=== PATIENT | male | born 1970 | race Caucasian/White ===

== ENCOUNTER 2019-03-26 00:15 | Observation (INO) | payer OTHER ==
[~2019-03-26] VITALS: Ht 177.8 cm; Wt 68.0 kg
[2019-03-26 00:18] VITALS: BP 88/52
[2019-03-26 00:52] LABS: ABSOLUTE BASOPHILS 0.1 thou/uL (0.0-0.2); ABSOLUTE EOSINOPHILS 0.2 thou/uL (0.0-0.7); ABSOLUTE LYMPHOCYTES 3.1 thou/uL (0.8-5.3); ABSOLUTE MONOCYTES 0.5 thou/uL (0.0-1.2); ABSOLUTE NEUTROPHILS 5.5 thou/uL (1.6-8.1); BASOPHILS 0.8 %; EOSINOPHILS 1.7 %; HEMATOCRIT 37.7 % (42.0-52.0); HEMOGLOBIN 12.7 gm/dL (14.0-18.0); LYMPHOCYTES 33.3 %; MCH 29.2 pg (26.0-34.0); MCHC 33.6 g/dL (28.0-37.0); MCV 87.2 fL (80.0-100.0); MONOCYTES 5.4 %; MPV 7.3 fl. (7.2-11.1); NUCLEATED RBCS 0 /100WBC; PLATELET COUNT* 343 thou/uL (150-400); POLYS 58.8 %; RBC 4.33 mil/uL (4.50-6.00); RDW-CV 14.1 % (10.5-14.5); WBC 9.4 thou/uL (4.0-11.0)
[2019-03-26 00:58] LABS: CREATININE 1.4 mg/dL (0.6-1.3); POTASSIUM 3.6 mmol/L (3.5-5.1)
[2019-03-26 00:59] LABS: APTT 23.8 Seconds (25.0-31.3); PROTIME 10.4 Seconds (9.20-11.50)
[2019-03-26 01:03] LABS: ALBUMIN 3.8 g/dL (3.4-5.0); TOTAL BILIRUBIN 0.4 mg/dL (<0.1-1.0); TOTAL PROTEIN 6.8 g/dL (6.4-8.2)
--- NOTE | 2019-03-26 04:30 | NUR ---
PT MOVED TO ROOM 7 AND PLACED ON HOSPITAL BED FOR COMFORT. PT REMAINS ON FULL INFORMATION SECURITY MANAGER. MAINTENANCE FLUIDS INFUSING. WILL CONTINUE TO MONITOR PT.
[2019-03-26 06:17] LABS: HEMATOCRIT 29.8 % (42.0-52.0)
[2019-03-26 06:21] LABS: HEMOGLOBIN 10.1 gm/dL (14.0-18.0)
[2019-03-26 06:30] VITALS: BP 134/84
--- NOTE | 2019-03-26 07:32 | NUR ---
DR. ECHEVERRIA TO SEE PT
[2019-03-26 08:23] VITALS: BP 156/94
[2019-03-26] MEDS ORDERED: NORCO 5-325 TA1 EACH PO (09:15)
--- NOTE | 2019-03-26 09:55 | NUR ---
DR. MANNING, VASCULAR SURGERY, PAGED THROUGH ANSWERING SERVICE FOR HAND DRESSING ORDERS FOR DISCHARGE. AWAITING RETURN CALL.
[2019-03-26 10:36] VITALS: BP 156/94
--- NOTE | 2019-03-26 11:00 | NUR ---
ANSWERING SERVICE FOR DR. MANNING CONTACTED DUE TO NO RETURN CALL YET RECEIVED.
--- NOTE | 2019-03-26 11:14 | NUR ---
SPOKE WITH DR. MANNING, RECIEVED ORDERS FOR HOME DRESSING CARE FOR PT. BACTRIM DS SCRIPT ADDED FOR PT
[2019-03-26 12:05] VITALS: BP 159/95
--- NOTE | 2019-03-29 12:47 | CON ---
[address] [address] CONSULTATION Name: TED MEYERS Room: [address] Eleonora Frye#: [id number] Admission: 03/26/19 Attend Phys: Zoe Vargas MD Discharge: 03/26/19 Date of : 66 Report #: [id number] THIS REPORT FOR: //name// CC: MIKE physician/PCP Zoe Vargas DATE OF SERVICE: 03/26/2019 HISTORY OF PRESENT ILLNESS: The patient is a very pleasant 48-year-old gentleman who was seen in the Emergency Room. Already, he was seen by Vascular Surgery for an injury he sustained to his dominant left arm at the wrist level. The patient was scraping off some popcorn ceiling, slipped with a knife and it came down and struck him in the wrist region on the volar side. He presented here with that injury. Dr. Ladd of Vascular Surgery repaired this ulnar artery laceration. He has been admitted overnight for observation, apparently. The patient does state he has tingling in this extremity. The patient otherwise on his examination is very cooperative. ALLERGIES: He has no allergies. FAMILY HISTORY: Really unremarkable. SOCIAL HISTORY: Not applicable for tobacco or alcohol use really. REVIEW OF SYSTEMS: MUSCULOSKELETAL: He complains of tingling in the hand on that left side. He does demonstrate that he has some difficulty moving his fingers. PHYSICAL EXAMINATION: VITAL SIGNS: Showed he had temperature 98, BP 88/52, pulse 68. GENERAL: This is a very pleasant gentleman. He is alert, oriented, cooperative. He feels much better after he was repaired apparently. HEENT: No scleral icterus. He is normocephalic. He does demonstrate his trachea is midline. The patient has no respiratory accessory use of muscles and no audible wheezes. ABDOMEN: Flat. EXTREMITIES: Upper extremities and appeared obviously wrapped up to his left wrist region with Coban after it was repaired. He has decreased sensation across the ulnar nerve distribution of his left hand, normal on the right. He can extend his fingers and his flexor tendons appear relatively intact to that small finger. The patient is little reluctant to fully flex them, although he cannot get that little finger to touch the palm. Otherwise, all other fingers remained unremarkable. Sensation is intact. Flexor and extensor tendons are intact to those on the same left hand. IMPRESSION: [place] [address] CONSULTATION Name: TED MEYERS Room: [address] Eleonora Frye#: [id number] Admission: 03/26/19 Attend Phys: Zoe Vargas MD Discharge: 03/26/19 Date of : 66 Report #: [id number] 1. Ulnar artery laceration that was repaired by Vascular Surgery. 2. Laceration to the wrist. 3. Potential ulnar nerve laceration as well at the wrist level and remote possibility of flexor tendon laceration. PLAN: I told this gentleman he is going to be admitted just for observation, that more than likely I have to have him see a hand surgeon if that ulnar nerve needs repaired and/or tendons on the flexor side, I would like a hand surgeon do that. We will try to get him an appointment if we can with the only hand surgeons in this area, over at [place] area. It is definitely our pleasure seeing and taking care of the patient today. We will be available as needed otherwise. <ELECTRONICALLY SIGNED> By: Blaine Musa DO 03/29/19 1247 [id number] Musa DO /nt
--- NOTE | 2019-03-29 13:11 | CON ---
[address] [address] CONSULTATION Name: TED MEYERS Room: [address] Eleonora Frye#: [id number] Admission: 03/26/19 Attend Phys: Zoe Vargas MD Discharge: 03/26/19 Date of : 66 Report #: [id number] THIS REPORT FOR: //name// CC: FAM physician/PCP Zoe Vargas DATE OF SERVICE: 03/26/2019 REQUESTING PHYSICIAN: Dr. Hinojosa in the ER. REASON FOR CONSULTATION: Bleeding ulnar artery. HISTORY OF PRESENT ILLNESS: The patient is a very pleasant 48-year-old white male who presented by car this morning with a deep laceration of his left wrist. He had pulsatile bleeding. Pressure dressing was applied and I was called. He had been scraping popcorn texture off his ceiling and fell on his scraping tool. REVIEW OF SYSTEMS: A 12-point review of systems was reviewed and negative as per HPI. PAST MEDICAL HISTORY: Significant for previous orthopedic trauma from fall at work. Denies other significant past medical history. MEDICATIONS: None. ALLERGIES: None. SOCIAL HISTORY: The patient does not smoke. He has not had a drink in over years, although did have one beer this evening. Denies drug use. PHYSICAL EXAMINATION: GENERAL: The patient is in moderate distress. He is pale, diaphoretic, hypotensive. He is actively undergoing resuscitation this time. His left wrist is wrapped. HEENT: Normocephalic, atraumatic. NECK: Supple. HEART: Regular. LUNGS: Clear. ABDOMEN: Soft. EXTREMITIES: Left wrist is wrapped. When I take down the wrap he has a deep laceration of his left medial wrist, which has pulsatile bleeding from the ulnar artery. I was able to control the bleeding and close the wound. Please see procedure note for further details. NEUROLOGIC: Grossly intact. ASSESSMENT: Laceration, left medial wrist with ulnar artery injury as well as [facility] [address] [place] [address] CONSULTATION Name: TED MEYERS Room: [address] Eleonora Frye#: [id number] Admission: 03/26/19 Attend Phys: Zoe Vargas MD Discharge: 03/26/19 Date of : 66 Report #: [id number] tendon injury. PLAN: 1. I controlled the bleeding from the ulnar artery in the ER. I washed out the wound. I closed the incision primarily. 2. I evaluated the patient's hand and he had normal flow through his radial artery with intact palmar arch. He has neuromotor intact. 3. We will plan to admit the patient overnight tonight for observation. He lost quite a bit of blood. We will recheck hemoglobin in the morning. We will also have Orthopedics evaluate the patient in the morning to evaluate tendon injury. I did not think he requires further vascular repair at this time. Thank you very much for involving me in the care of this very pleasant patient. Please feel free to call me if any questions or concerns with assessment and plan. <ELECTRONICALLY SIGNED> By: Silvino Stout DO 03/29/19 1311 [id number] [id number] Miguel Ladd MD /nt
--- NOTE | 2019-03-29 13:11 | OP ---
[address] [address] OPERATIVE REPORT Name: TED MEYERS Room: [address] Eleonora Frye#: [id number] Admission: 03/26/19 Attend Phys: Zoe Vargas MD Discharge: 03/26/19 Date of : 66 Report #: [id number] THIS REPORT FOR: //name// CC: MIKE physician/PCP Zoe Vargas DATE OF SERVICE: 03/26/2019 PREOPERATIVE DIAGNOSIS: Laceration, left wrist, with ulnar artery injury. POSTOPERATIVE DIAGNOSIS: Laceration, left wrist, with ulnar artery injury. PROCEDURE: 1. Ligation of ulnar artery with exploration wound. 2. Washout and closure of complex wrist laceration, left medial wrist. SURGEON: Jose Miguel Ladd MD. RETAIL RESET MERCHANDISER: None. ANESTHESIA: Local. COMPLICATIONS: None. ESTIMATED BLOOD LOSS: 200 mL. SPECIMEN: None. INDICATIONS FOR PROCEDURE: The patient is a very pleasant 48-year-old white male who fell on a scraping tool while cleaning popcorn texture off a ceiling. He had a complex laceration of his left medial wrist. This was down to and including the ulnar artery. I was called in emergently to control bleeding and evaluate the patient. Informed consent was implied given the emergent nature of the procedure. The patient was diaphoretic and hypotensive and needed to control his bleeding as soon as possible for resuscitation to prevent his continued demise. DESCRIPTION OF PROCEDURE: At the patient's bedside in the ER, I took down the pressure dressing. There was pulsatile bleeding from the wound bed. I held digital pressure. I irrigated the wound bed with Betadine and sterilized the wound bed. I injected 12 mL of 1% lidocaine in and around the laceration for local anesthetic. I then identified and clamped the two free ends of the ulnar artery. This controlled the bleeding. Using 4-0 Vicryl, I ligated both the proximal and distal ends of the ulnar artery. This controlled the bleeding. I irrigated vigorously with Betadine and saline to irrigate out the wound bed. I closed the incision with interrupted 4-0 nylon sutures. A total of [address] [place] [address] OPERATIVE REPORT Name: LUIGITED Marc [address]#: [id number] Admission: 03/26/19 Attend Phys: Zoe Vargas MD Discharge: 03/26/19 Date of : 66 Report #: [id number] placed. I had the patient flex and extend his fingers, all of which appeared to be in working order. I interrogated the radial artery with Doppler and had a multiphasic signal down into the hand. The palmar arch is intact with a pulsatile flow to the ulnar side of the wrist. We redressed his wrist with 4 x 4 and Coban as well as a wrist strap for immobilization. PLAN: Plan will be to admit the patient overnight for observation as he did lose quite a bit of blood at the scene. We will transfuse as needed. I will have Orthopedic Surgery evaluate him in the morning for any potential need for tendon repair. He has intact radial flow to the palmar arch with an intact arch. I do not think he requires revascularization of his ulnar artery at this time. We will continue to monitor and be available should his vascular status of his hand change. <ELECTRONICALLY SIGNED> By: Silvino Stout DO 03/29/19 1311 [id number] [id number] Miguel Ladd MD /nt
== END 2019-03-26 12:05 | disposition home or self-care (01) ==
LOC: M.ERS 00:15 → M.TBA-ER 01:31
PROVIDERS: Family Medicine; ADMIT Internal Medicine
DX: S61.512A Laceration without foreign body of left wrist, initial encounter (principal); D62 Acute posthemorrhagic anemia; W11.XXXA Fall on and from ladder, initial encounter; W26.0XXA Contact with knife, initial encounter; Y93.9 Activity, unspecified; Y92.9 Unspecified place or not applicable